=== PATIENT | male | born 1960 | race Caucasian/White ===

== ENCOUNTER → 2016-03-29 | Outpatient (CLI) | payer OTHER ==
--- NOTE | ~2016-03-29 | SLE ---
[facility] [address] [place] [address] POLYSOMNOGRAPHY STUDY Name: MAX WINTERS I Room #: REG DAVID M..#: [id number] Admission: 03/29/16 Attend Phys: Donnell Arnold MD Discharge: Date of : 58 Report #: [id number] THIS REPORT FOR: //name// CC: Manfred Ortega MD HISTORY: The patient with history of fatigue, disordered sleep, elevated serum creatinine. COMMENTS: SLEEP SUMMARY: Total sleep time 217 minutes, sleep efficiency 50%. Sleep latency 8 minutes. REM latency 278 minutes. SLEEP STAGE: 1-20%, 2-68%, REM-12%. RESPIRATORY SUMMARY: Central apnea 2, obstructive apnea, 1, hypopnea 2. Apnea-hypopnea index 1.4 events per sleep hour. Supine AHI 3.4, left lateral 0 events per sleep hour. Max heart rate 76. Periodic limb movement with arousal index 5.5 events per sleep hour. Snoring noted. Low oxygen saturation 89%. IMPRESSION: 1. Apnea-hypopnea index 1.4 events per sleep hour. 2. Periodic limb movement with arousal index of 5.5 events per sleep hour, G47.61. 3. No significant arrhythmia noted. 4. Poor sleep efficiency. SUGGESTIONS: 1. Further discussion regarding restless legs and periodic limb movement disorder is recommended. 2. Further discussion regarding sleep hygiene measures are recommended. 3. May need to consider a repeat study once sleep hygiene measures have been addressed and if it is still felt that he has respiratory events during the night. 4. If signs and symptoms not improved with therapy, further evaluation is recommended. <ELECTRONICALLY SIGNED> By: Donnell Arnold MD 04/04/16 1705 [id number] Donnell Arnold MD /nt
== END ==
LOC: SLEEPLAB 08:38
DX: G47.33 Obstructive sleep apnea (adult) (pediatric) (principal)

== ENCOUNTER → 2016-06-25 | Outpatient (CLI) | payer OTHER ==
--- NOTE | ~2016-06-25 | SLE ---
[facility] [address] [place] [address] POLYSOMNOGRAPHY STUDY Name: MAX WINTERS I Room #: REG DAVID Samira.#: [id number] Admission: 06/25/16 Attend Phys: Donnell Arnold MD Discharge: Date of : 58 Report #: [id number] THIS REPORT FOR: //name// CC: Donnell Ward Byron Jordan Prior home study on May 24 showed apnea-hypopnea index of 15 events per recording hour, supine 20, left lateral 6, right lateral 20 events per recording hour. COMMENTS: CPAP TITRATION: PAC noted. Titrated at 5, 7 and 9 cm water pressure. At 9 cm water pressure, 89 minutes of sleep was seen only 4.5 minutes of REM sleep. There were 18 central apneas, 17 hypopneas, apnea-hypopnea index 23.5 events per sleep hour. Low oxygen saturation 82%, a Brevida of [employer] Brevida mask was used. IMPRESSION: 1. Obstructive sleep, apnea/hypopnea, G47.33. 2. Central events noted. 3. A definite CPAP setting was not established. 4. Premature atrial contraction/premature ventricular contraction noted. SUGGESTIONS: 1. Further discussion regarding etiology of central events is recommended. 2. May consider a trial of home auto-titrating CPAP between 5 and 12 cm water pressure. If central events continued to occur a BiPAP/BiPAP ST titration night is recommended. 3. The patient had upper lip discomfort with Brevida mask, which he told engineering lab technician about in the morning and may need to have a full facemask and attention to this prior to obtaining home auto-titrating or prior to him returning for BiPAP/BiPAP ST titration. 4. If signs and symptoms not improved with therapy, further evaluation is recommended. Please do not hesitate to contact me if I may be of further assistance. By: [id number] Donnell Arnold MD /nt
== END ==
LOC: SLEEPLAB 06-23 12:14
DX: G47.33 Obstructive sleep apnea (adult) (pediatric) (principal)

== ENCOUNTER → 2016-12-26 | Outpatient (CLI) | payer OTHER ==
--- NOTE | ~2016-12-26 | 2DMMODE ---
[facility] [address] [place] [address] 2 D/M-MODE ECHOCARDIOGRAM Name: MAX WINTERS I [id number] Admission: 12/26/16 Attend Phys: Marv Jones MD Discharge: Date of : 58 Date of Service: 12/26/16 1454 Report #: [id number] THIS REPORT FOR: //name// APPROVED REPORT Study performed: 12/26/2016 13:06:19 EXAM: Comprehensive 2D, Doppler, and color-flow Echocardiogram Patient Location: Out-Patient Room #: Echo lab Status: routine BSA: 2.01 HR: 55 bpm BP: 134/86 mmHg Other Information Study Quality: Good Indications Dyspnea 2D Dimensions RVDd: 39.68 mm LVEF(%): 58.72 (>50%) IVSd: 8.46 (7-11mm) LVOT Diam: 24.26 (18-24mm) LVDd: 51.05 mm PWd: 8.34 (7-11mm) Ascending Ao: 32.22 (22-36mm) LVDs: 35.10 (25-40mm) Aortic Root: 35.84 mm IVC: 22.00 mm Bruner's LVEF: 58.72 % Volumes Left Atrial Volume (Systole) Single Plane 4CH: 35.68 mL Single Plane 2CH: 73.63 mL LA ESV Index: 30.00 mL/m2 Mitral Valve E/A Ratio: 1.5 MV Decel. Time: 331.16 ms MV E Max Paco.: 0.69 m/s MV A Paco.: 0.45 m/s MV PHT: 96.04 ms IVRT: 133.79 ms Pulmonary Valve PV Peak Paco.: 0.77 m/s PV Peak Gr.: 2.36 mmHg [facility] [place] [address] 2 D/M-MODE ECHOCARDIOGRAM Name: MAX WINTERS I Room #: REG [facility]#: [id number] Admission: 12/26/16 Attend Phys: Marv Jones MD Discharge: Date of : 58 Date of Service: 12/26/16 1454 Report #: [id number] Pulmonary Vein P Vein S: 0.73 m/s P Vein A: 0.26 m/s P Vein D: 0.54 m/s P Vein A Dur.: 115.3 msec P Vein S/D Ratio: 1.35 Tricuspid Valve TR Peak Paco.: 1.98 m/s TR Peak Gr.: 15.66 mmHg PA Pressure: 27.00 mmHg Left Ventricle The left ventricle is normal size. There is normal left ventricular wall thickness. The left ventricular systolic function is normal. The left ventricular ejection fraction is within the normal range. LVEF is 55-60%. The left ventricular diastolic function is normal. Right Ventricle The right ventricle is normal size. The right ventricular systolic function is normal. Atria The left atrium size is normal. The right atrium size is normal. Aortic Valve The aortic valve is normal in structure. No aortic regurgitation is present. There is no aortic valvular stenosis. Mitral Valve The mitral valve is normal in structure. Trace to mild mitral regurgitation. No evidence of mitral valve stenosis. Tricuspid Valve The tricuspid valve is normal in structure. There is trace tricuspid regurgitation. There is no pulmonary hypertension. Estimated PAP 27 mmHg Pulmonic Valve The pulmonary valve is normal in structure. Trace pulmonic regurgitation. Great Vessels The aortic root is normal in size. IVC is normal in size and collapses >50% with inspiration. [facility] [address] [place] [address] 2 D/M-MODE ECHOCARDIOGRAM Name: VIANEYMAX I Room #: REG [facility]#: [id number] Admission: 12/26/16 Attend Phys: Marv Jones MD Discharge: Date of : 58 Date of Service: 12/26/16 1454 Report #: [id number] Pericardium There is no pericardial effusion. <Conclusion> The left ventricle is normal size. The left ventricular systolic function is normal. The left ventricular diastolic function is normal. The right ventricle is normal size. The left atrium size is normal. The aortic valve is normal in structure. Trace to mild mitral regurgitation. There is trace tricuspid regurgitation. There is no pulmonary hypertension. Estimated PAP 27 mmHg <ELECTRONICALLY SIGNED> By: Marv Jones MD 12/26/16 1454 1454 1454 Marv Jones MD /INF
--- NOTE | ~2016-12-26 | EXE ---
[facility] [address] [place] [address] STRESS ECHOCARDIOGRAM Name: MAX WINTERS I Room #: REG CL Mo#: [id number] Admission: 12/26/16 Attend Phys: Marv Jones MD Discharge: Date of : 58 Date of Service: 12/26/16 1522 Report #: [id number] THIS REPORT FOR: //name// APPROVED REPORT Exam: Stress Echocardiogram Indication: Dyspnea , Chest pain Patient Location: Echo lab Stress Nurse: Sofie Varela RN Room #: 2 Status: routine Ht: 6 ft 1 in HR: 55 bpm BP: 134/86 mmHg Medical History Medical History: SOA Exercise History: Physically active Procedure The patient underwent an Exercise Stress Test using the Ashutosh Protocol. Blood pressure, heart rate, and EKG were monitored. An Echocardiogram was performed by electrical technician in four stages in quad fashion. At peak stress, four selected images were obtained and placed side by side with resting images for comparison. Stress Test Details Stress Test: Exercise stress testing was performed using a Ashutosh protocol. HR Resting HR: 55 bpm Max Heart Rate (APMHR): 163 bpm Max HR Achieved: 164 bpm Target HR (85% APMHR): 138 bpm % of APMHR: 100 Recovery HR: 93 bpm BP Resting BP: 134/86 mmHg Max BP: 162/74 mmHg Recovery BP: 146/70 mmHg ECG Resting ECG: Sinus Rhythm Stress ECG: Sinus Rhythm, nonspecific ST-T abnormalities ST Change: Non-ischemic [facility] [address] [place] [address] STRESS ECHOCARDIOGRAM Name: MAX WINTERS I Room #: REG [facility]#: [id number] Admission: 12/26/16 Attend Phys: Marv Jones MD Discharge: Date of : 58 Date of Service: 12/26/161521 Report #: [id number] Clinical Reason for Termination: Maximal effort Exercise duration: 12 min 46 sec Highest Stage Achieved: Stage 6: 5.5 mph at 20% grade. Exercise capacity: 15.8 METs Pre-Stress Echo The resting Echocardiogram showed normal left ventricular contractility with an estimated Ejection Fraction of about 55-60%. Post-Stress Echo The stress Echocardiogram showed normal left ventricular contractility with an estimated Ejection Fraction of about 65-70%. Clinical Normal augmentation of myocardial wall segments using a 17 segment model. Conclusion Clinical Response: Non-ischemic Exercise Capacity: Above average Stress ECG Response: Non-ischemic Stress Echo Images: Non-ischemic No clinical, EKG or echocardiographic evidence for ischemia. Other Information Study Quality: Good <Conclusion> No clinical, EKG or echocardiographic evidence for ischemia. <ELECTRONICALLY SIGNED> By: Marv Jones MD 12/26/16 1522 [id number] 1522 Marv Jones MD /VIOLETTE
== END ==
LOC: CV 13:15
DX: R06.00 Dyspnea, unspecified (principal); R07.9 Chest pain, unspecified